=== PATIENT | female | born 2000 | race Hispanic/Latino ===

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

== ENCOUNTER 2019-02-04 21:31 | Emergency (ER) | payer OTHER ==
[2019-02-04 22:23] LABS: RAPID GROUP A STREP NEGATIVE (NEGATIVE)
== END 2019-02-04 22:39 | disposition home or self-care (01) ==
LOC: EDH 21:31
DX: J06.9 Acute upper respiratory infection, unspecified (principal)
CPT/HCPCS: 87804; 87880

== ENCOUNTER 2020-07-04 23:48 | Emergency (ER) | payer OTHER ==
[2020-07-05] MEDS ORDERED: ACETAMINOPHEN EXTRA STRENGTH 500 MG TABLET ONE (02:23)
[2020-07-05] MEDS ORDERED: IBUPROFEN 400 MG TABLET ONE (02:23)
[2020-07-05] MEDS ORDERED: CYCLOBENZAPRINE HCL 10 MG TABLET ONE (02:24)
== END 2020-07-05 02:35 | disposition home or self-care (01) ==
LOC: EDH 23:48
DX: R07.89 Other chest pain (principal)
CPT/HCPCS: 71045; 81025; 93005

== ENCOUNTER 2020-10-07 23:11 | Emergency (ER) | payer SELFPAY ==
[~2020-10-07] VITALS: Ht 154.9 cm; Wt 47.2 kg
[2020-10-07 23:13] VITALS: BP 110/62
== END 2020-10-08 02:01 | disposition left against medical advice (07) ==
LOC: EDH 23:11
DX: R51.9 Headache, unspecified (principal); R50.9 Fever, unspecified; Z53.21 Procedure and treatment not carried out due to patient leaving prior to being seen by health care provider

== ENCOUNTER 2021-03-05 20:00 | Emergency (ER) | payer OTHER ==
[~2021-03-05] VITALS: Ht 154.9 cm; Wt 50.3 kg
[2021-03-05 20:27] LABS: APPEARANCE,URINE Cloudy (CLEAR); BILIRUBIN,URINE Negative (NEGATIVE); COLOR,URINE Yellow (YELLOW); GLUCOSE, URINE (UA) Negative (NEGATIVE); KETONES,URINE Negative (NEGATIVE); LEUKOCYTE ESTERASE ,URINE Large (NEGATIVE); NITRATE,URINE Negative (NEGATIVE); OCCULT BLOOD,URINE Negative (NEGATIVE); PH,URINE 8.5 (5.0-8.0); PROTEIN,URINE Negative (NEGATIVE)
[2021-03-05 20:34] LABS: BACTERIA,URINE Few /HPF (None Seen); SQUAMOUS EPITHELIAL CELL,UR Moderate /HPF (0-2)
[2021-03-05 20:35] LABS: MUCUS,URINE Rare LPF (None Seen)
[2021-03-05] MEDS ORDERED: FLUCONAZOLE 100 MG TAB PO ONE (22:30)
[2021-03-05] MEDS ORDERED: DIPHENHYDRAMINE HCL 25 MG CAPSULE PO ONE (22:30)
[2021-03-05 22:51] VITALS: BP 118/70
== END 2021-03-05 22:48 | disposition home or self-care (01) ==
LOC: EDH 20:00
DX: B37.3 Candidiasis of vulva and vagina (principal)
CPT/HCPCS: 81001; 81025; 87088; 99283; Q0163

== ENCOUNTER 2021-08-05 23:17 | Emergency (ER) | payer OTHER ==
[~2021-08-05] VITALS: Ht 154.9 cm; Wt 51.3 kg
[2021-08-05 23:52] LABS: APPEARANCE,URINE Clear (CLEAR); BILIRUBIN,URINE Negative (NEGATIVE); COLOR,URINE Yellow (YELLOW); GLUCOSE, URINE (UA) Negative (NEGATIVE); KETONES,URINE Trace mg/dL (NEGATIVE); LEUKOCYTE ESTERASE ,URINE Small (NEGATIVE); NITRATE,URINE Negative (NEGATIVE); OCCULT BLOOD,URINE Negative (NEGATIVE); PH,URINE 6.5 (5.0-8.0); PROTEIN,URINE Negative (NEGATIVE)
[2021-08-05 23:57] LABS: HCG,QUAL RESULT POSITIVE (NEGATIVE)
[2021-08-06 00:01] LABS: BACTERIA,URINE None Seen /HPF (None Seen); MUCUS,URINE Many LPF (None Seen); SQUAMOUS EPITHELIAL CELL,UR Moderate /HPF (0-2)
[2021-08-06] MEDS ORDERED: NITROFURANTOIN MONOHYD/M-CRYST 100 MG CAPSULE PO ONE (00:30)
[2021-08-06 00:37] LABS: CREATININE 0.6 mg/dL (0.5-1.5); POTASSIUM 3.5 mmol/L (3.5-5.1)
[2021-08-06 00:42] LABS: ALBUMIN 3.9 g/dL (3.5-5.0); BILIRUBIN,TOTAL 0.2 mg/dL (0.2-1.0); TOTAL PROTEIN, SERUM 7.3 g/dL (6.0-8.3)
[2021-08-06 00:56] LABS: BASOPHILS % (AUTO) 0.3 % (0.0-5.0); EOSINOPHILS % (AUTO) 0.6 % (0.0-8.0); LYMPHOCYTES % (AUTO) 28.6 % (21.0-51.0); MEAN CORPUSCULAR HEMOGLOBIN 29.6 pg (27.0-33.0); MEAN CORPUSCULAR HGB CONC 33.1 g/dL (32.0-36.0); MEAN CORPUSCULAR VOLUME 89.6 fL (79-99); MONOCYTES % (AUTO) 6.3 % (3.0-13.0); NEUTROPHILS % (AUTO) 63.9 % (40.0-77.0); PLATELET COUNT (AUTO) 285 K/uL (130-400); RED BLOOD CELL COUNT(AUTO) 4.02 MIL/uL (4.00-5.50); RED CELL DISTRIBUTION WIDTH 13.4 % (11.0-15.5); WHITE BLOOD COUNT (AUTO) 11.7 K/uL (4.8-10.8)
[2021-08-06] MEDS ORDERED: NITR100C4 PO (01:11)
[2021-08-06 01:36] VITALS: BP 125/89
== END 2021-08-06 01:37 | disposition home or self-care (01) ==
LOC: EDH 23:17
DX: O23.41 Unspecified infection of urinary tract in pregnancy, first trimester (principal); N39.0 Urinary tract infection, site not specified; Z3A.01 Less than 8 weeks gestation of pregnancy
CPT/HCPCS: 36415; 76801; 80053; 81001; 81025; 84702; 85025; 87088

== ENCOUNTER 2021-08-12 19:39 | Emergency (ER) | payer MEDICAID, OTHER ==
[~2021-08-12] VITALS: Ht 154.9 cm; Wt 49.4 kg
[~2021-08-12 19:39] MED LIST: NITR100C4 PO
[2021-08-12 20:11] LABS: BASOPHILS % (AUTO) 0.2 % (0.0-5.0); EOSINOPHILS % (AUTO) 0.8 % (0.0-8.0); HEMATOCRIT 37.8 % (36-48); MEAN CORPUSCULAR HEMOGLOBIN 29.3 pg (27.0-33.0); MEAN CORPUSCULAR HGB CONC 33.1 g/dL (32.0-36.0); MEAN CORPUSCULAR VOLUME 88.5 fL (79-99); MONOCYTES % (AUTO) 4.4 % (3.0-13.0); NEUTROPHILS % (AUTO) 64.2 % (40.0-77.0); PLATELET COUNT (AUTO) 302 K/uL (130-400); RED BLOOD CELL COUNT(AUTO) 4.27 MIL/uL (4.00-5.50); RED CELL DISTRIBUTION WIDTH 13.3 % (11.0-15.5); WHITE BLOOD COUNT (AUTO) 11.3 K/uL (4.8-10.8)
[2021-08-12 21:31] LABS: APPEARANCE,URINE Clear (CLEAR); BILIRUBIN,URINE Negative (NEGATIVE); COLOR,URINE Yellow (YELLOW); GLUCOSE, URINE (UA) Negative (NEGATIVE); KETONES,URINE Negative (NEGATIVE); LEUKOCYTE ESTERASE ,URINE Small (NEGATIVE); NITRATE,URINE Negative (NEGATIVE); OCCULT BLOOD,URINE Negative (NEGATIVE); PH,URINE >=9.0 (5.0-8.0); PROTEIN,URINE Negative (NEGATIVE)
[2021-08-12 21:42] LABS: BACTERIA,URINE Rare /HPF (None Seen); RBC,URINE 0-1 /HPF (0-1)
[2021-08-12 21:43] LABS: MUCUS,URINE Few LPF (None Seen); SQUAMOUS EPITHELIAL CELL,UR Moderate /HPF (0-2)
[2021-08-12 22:59] VITALS: BP 130/67
== END 2021-08-12 23:00 | disposition home or self-care (01) ==
LOC: EDH 19:39
DX: O20.0 Threatened abortion (principal); Z3A.01 Less than 8 weeks gestation of pregnancy
CPT/HCPCS: 36415; 76801; 81001; 84702; 85025; 86900; 86901

== ENCOUNTER 2021-08-19 14:31 | Emergency (ER) | payer MEDICAID ==
[~2021-08-19] VITALS: Ht 152.4 cm; Wt 49.9 kg
[2021-08-19 14:35] VITALS: BP 112/67
[2021-08-19 15:06] LABS: APPEARANCE,URINE CLOUDY (CLEAR); BILIRUBIN,URINE NEGATIVE (NEGATIVE); COLOR,URINE YELLOW (YELLOW); GLUCOSE, URINE (UA) NEGATIVE (NEGATIVE); KETONES,URINE 40 mg/dL (NEGATIVE); LEUKOCYTE ESTERASE ,URINE TRACE (NEGATIVE); NITRATE,URINE NEGATIVE (NEGATIVE); OCCULT BLOOD,URINE LARGE (NEGATIVE); PROTEIN,URINE 30 mg/dL (NEGATIVE); UROBILINOGEN,URINE 0.2 mg/dL (0.2-1.0)
[2021-08-19 15:11] LABS: RBC,URINE >100 /HPF (0-1)
[2021-08-19 15:12] LABS: BACTERIA,URINE Few /HPF (None Seen); SQUAMOUS EPITHELIAL CELL,UR Few /HPF (0-2)
[2021-08-19 15:29] LABS: BASOPHILS % (AUTO) 0.2 % (0.0-5.0); EOSINOPHILS % (AUTO) 0.4 % (0.0-8.0); HEMATOCRIT 37.1 % (36-48); LYMPHOCYTES % (AUTO) 21.2 % (21.0-51.0); MEAN CORPUSCULAR HEMOGLOBIN 28.8 pg (27.0-33.0); MEAN CORPUSCULAR HGB CONC 32.3 g/dL (32.0-36.0); MEAN CORPUSCULAR VOLUME 89.2 fL (79-99); MONOCYTES % (AUTO) 5.1 % (3.0-13.0); NEUTROPHILS % (AUTO) 72.7 % (40.0-77.0); PLATELET COUNT (AUTO) 287 K/uL (130-400); RED BLOOD CELL COUNT(AUTO) 4.16 MIL/uL (4.00-5.50); RED CELL DISTRIBUTION WIDTH 13.1 % (11.0-15.5); WHITE BLOOD COUNT (AUTO) 10.4 K/uL (4.8-10.8)
[2021-08-19] MEDS ORDERED: CEFTRIAXONE 1G VIAL IVP ONE (16:00)
[2021-08-19 16:01] LABS: CREATININE 0.6 mg/dL (0.5-1.5); POTASSIUM 3.7 mmol/L (3.5-5.1)
[2021-08-19 16:29] LABS: ALBUMIN 4.3 g/dL (3.5-5.0); BILIRUBIN,TOTAL 0.4 mg/dL (0.2-1.0); TOTAL PROTEIN, SERUM 7.5 g/dL (6.0-8.3)
[2021-08-19] MEDS ORDERED: CEPH500B PO (16:37)
== END 2021-08-19 16:48 | disposition home or self-care (01) ==
LOC: EDH 14:31
DX: O20.0 Threatened abortion (principal); N39.0 Urinary tract infection, site not specified; Z3A.01 Less than 8 weeks gestation of pregnancy
CPT/HCPCS: 36415; 76801; 80053; 81001; 84702; 85025; 86900; 86901; 87088; 96374; 99284; J0696

== ENCOUNTER 2023-02-18 19:40 | Emergency (ER) | payer MEDICAID ==
[~2023-02-18] VITALS: Ht 154.9 cm; Wt 54.4 kg
[~2023-02-18 19:40] MED LIST changes: +CEPH500B PO
[2023-02-18 22:08] VITALS: BP 122/74; PULSE 88; RESP 18; O2SAT 99
== END 2023-02-18 22:10 | disposition home or self-care (01) ==
LOC: EDH 19:40
DX: S80.02XA Contusion of left knee, initial encounter (principal); S80.01XA Contusion of right knee, initial encounter; W01.10XA Fall on same level from slipping, tripping and stumbling with subsequent striking against unspecified object, initial encounter; Y93.89 Activity, other specified; Y92.89 Other specified places as the place of occurrence of the external cause; Y99.8 Other external cause status
CPT/HCPCS: 81025; 73560

== ENCOUNTER 2023-03-11 00:24 | Emergency (ER) | payer MEDICAID ==
[~2023-03-11] VITALS: Ht 154.9 cm; Wt 53.5 kg
[2023-03-11 00:25] VITALS: BP 130/79; PULSE 129; RESP 20
[2023-03-11] MEDS ORDERED: IBUPROFEN 600 MG TABLET PO ONE (01:00)
[2023-03-11] MEDS ORDERED: ONDANSETRON ODT 4MG TAB SL ONE (01:00)
[2023-03-11 01:06] LABS: RAPID GROUP A STREP negative (NEGATIVE)
[2023-03-11 01:08] LABS: SARS-CoV-2, RNA, NAAT NEGATIVE SARS CoV-2 (NEGATIVE)
[2023-03-11 01:14] LABS: INFLUENZA TYPE A Negative For Type A (NEGATIVE)
[2023-03-11 01:20] LABS: INFLUENZA TYPE B Positive For Type B (NEGATIVE)
[2023-03-11] MEDS ORDERED: OSEL75 PO (01:42)
[2023-03-11] MEDS ORDERED: GUAI5LIQ13 PO (01:42)
== END 2023-03-11 02:42 | disposition home or self-care (01) ==
LOC: EDH 00:24
DX: J10.1 Influenza due to other identified influenza virus with other respiratory manifestations (principal); Z20.822 Contact with and (suspected) exposure to COVID-19; Z79.899 Other long term (current) drug therapy
CPT/HCPCS: 99283; 87635; 87880; 87804 ×2; C9803